=== PATIENT | female | born 1935 | race Caucasian/White ===

== ENCOUNTER 2021-09-12 10:16 | Emergency (ER) | payer MEDICARE ==
[2021-09-12 11:10] LABS: BASOPHIL 0.2 % (0-2); EOSINOPHIL 0.2 % (0-7); HCT 39.5 % (37.0-47.0); HGB 12.1 g/dl (12.5-16.0); LYMPHOCYTE 10.2 % (15-48); MCH 24.4 pg (25.0-31.0); MCHC 30.6 g/dL (32.0-36.0); MCV 79.6 fL (78.0-100.0); MONOCYTE 9.4 % (0-12); NEUTROPHIL 79.7 % (41-80); NRBC 0; PLT 392 K/uL (150-400); RBC 4.96 M/uL (4.20-5.40); RDW 17.6 % (11.5-14.0); WBC 9.9 K/uL (4.0-10.5)
[2021-09-12 11:22] LABS: ALBUMIN 3.4 g/dL (3.4-5.0); BILIRUBIN - TOTAL 0.6 mg/dL (0.2-1.0); BUN/CREAT RATIO (CALC) 45.8 RATIO; CREATININE 0.96 mg/dL (0.51-0.95); GLOBULIN (CALCULATION) 3.8 g/dL; POTASSIUM 4.1 mmol/L (3.5-5.1); TOTAL PROTEIN 7.2 g/dL (6.4-8.2)
[2021-09-12 12:24] LABS: BILIRUBIN NEGATIVE (NEGATIVE); BLOOD NEGATIVE Ery/uL (NEGATIVE); CLARITY CLEAR (CLEAR); COLOR YELLOW (YELLOW); GLUCOSE (U) 1+ mg/dL (NORMAL); LEUKOCYTES NEGATIVE Leu/uL (NEGATIVE); NITRITE POSITIVE (NEGATIVE); PROTEIN TRACE (LOW) mg/dL (NEGATIVE); SPECIFIC GRAVITY 1.025 (1.001-1.030); UROBILINOGEN 0.2 mg/dL (0.2-1.0); pH 5.5 (5.0-9.0)
[2021-09-12 12:53] LABS: BACTERIA 4+
[2021-09-12] MEDS ORDERED: MACROBID100 MG PO (13:23)
== END 2021-09-12 13:46 | disposition home or self-care (01) ==
LOC: FER 10:16
PROVIDERS: Emergency Medicine
DX: E11.649 Type 2 diabetes mellitus with hypoglycemia without coma (principal); I21.4 Non-ST elevation (NSTEMI) myocardial infarction; N39.0 Urinary tract infection, site not specified; F03.90 Unspecified dementia, unspecified severity, without behavioral disturbance, psychotic disturbance, mood disturbance, and anxiety; Z79.4 Long term (current) use of insulin; Z79.84 Long term (current) use of oral hypoglycemic drugs
CPT/HCPCS: 36415; 70450; 71045; 80053; 81001; 83036; 84484; 85025; 87076; 87088; 87186; 93005